=== PATIENT | male | born 1945 | race Caucasian/White ===

== ENCOUNTER 2016-06-02 00:50 | Emergency (ER) | payer MEDICARE ==
[2016-06-02] MEDS ORDERED: DEXAMETHASONE 4 MG TABLET ONE (04:45)
== END 2016-06-02 05:24 | disposition home or self-care (01) ==
LOC: ED 00:50
DX: J06.9 Acute upper respiratory infection, unspecified (principal); E11.9 Type 2 diabetes mellitus without complications; E78.5 Hyperlipidemia, unspecified; I10 Essential (primary) hypertension; F41.9 Anxiety disorder, unspecified; F32.9 Major depressive disorder, single episode, unspecified; Z79.899 Other long term (current) drug therapy
CPT/HCPCS: 99283 ×2; A9270